=== PATIENT | female | born 1935 | race Caucasian/White ===

== ENCOUNTER 2016-02-24 11:09 | Outpatient (CLI) | payer MEDICARE, MEDICAID ==
[~2016-02-24 11:09] MED LIST: DABI150C PO; DEXL60CA3 PO; LAMO100T2 PO; LEVO137T24 PO; METF500T4 PO; NEBI10TA2 PO; OLME40TA3 PO; PANT40TA2 PO; QUET50TA PO; ROSU40TA PO; SOLI10TA PO; ZOLP5TAB2 PO; [UNRECOGNIZED DRUG - CODE] PO
== END 2016-02-24 23:59 | disposition home or self-care (01) ==
LOC: WOU 11:09
PROVIDERS: ATTEND Surgery
DX: R22.9 Localized swelling, mass and lump, unspecified (principal); W18.1 Fall from or off toilet; I69.354 Hemiplegia and hemiparesis following cerebral infarction affecting left non-dominant side; E11.9 Type 2 diabetes mellitus without complications; Z79.84 Long term (current) use of oral hypoglycemic drugs
CPT/HCPCS: 72190-TC; G0463

== ENCOUNTER 2016-04-27 12:00 | Outpatient (CLI) | payer MEDICARE, MEDICAID ==
[~2016-04-27 12:00] MED LIST changes: +CIPR-262 PO; -[UNRECOGNIZED DRUG - CODE] PO
== END 2016-04-27 23:59 | disposition home or self-care (01) ==
LOC: WOU 12:00
PROVIDERS: ATTEND Surgery
DX: T81.89XA Other complications of procedures, not elsewhere classified, initial encounter (principal); I96 Gangrene, not elsewhere classified; I69.354 Hemiplegia and hemiparesis following cerebral infarction affecting left non-dominant side; E11.9 Type 2 diabetes mellitus without complications; Z91.81 History of falling
CPT/HCPCS: 11043; A6402 ×2; J3490

== ENCOUNTER 2016-05-04 11:57 | Outpatient (CLI) | payer MEDICARE, MEDICAID | END 2016-05-04 23:59 | disposition home health service (06) | LOC: WOU 11:57 | PROVIDERS: ATTEND Surgery | DX: S71.011D Laceration without foreign body, right hip, subsequent encounter (principal); W19.XXXD Unspecified fall, subsequent encounter; I69.354 Hemiplegia and hemiparesis following cerebral infarction affecting left non-dominant side; E11.9 Type 2 diabetes mellitus without complications; S70.01XS Contusion of right hip, sequela; Z79.84 Long term (current) use of oral hypoglycemic drugs | CPT/HCPCS: 97605-TC; A6402 ==

== ENCOUNTER 2016-05-18 12:50 | Outpatient (CLI) | payer MEDICARE, MEDICAID | END 2016-05-18 23:59 | disposition home health service (06) | LOC: WOU 12:50 | PROVIDERS: ATTEND Surgery | DX: S71.011D Laceration without foreign body, right hip, subsequent encounter (principal); W19.XXXD Unspecified fall, subsequent encounter; I69.354 Hemiplegia and hemiparesis following cerebral infarction affecting left non-dominant side; E11.9 Type 2 diabetes mellitus without complications; S70.01XS Contusion of right hip, sequela; Z79.84 Long term (current) use of oral hypoglycemic drugs | CPT/HCPCS: 11043; A6402 ==

== ENCOUNTER 2016-05-25 12:37 | Outpatient (CLI) | payer MEDICARE, MEDICAID | END 2016-05-25 23:59 | disposition home health service (06) | LOC: WOU 12:37 | PROVIDERS: ATTEND Surgery | DX: T81.89XA Other complications of procedures, not elsewhere classified, initial encounter (principal); S70.01XS Contusion of right hip, sequela; W18.1 Fall from or off toilet; I69.354 Hemiplegia and hemiparesis following cerebral infarction affecting left non-dominant side; E11.9 Type 2 diabetes mellitus without complications; Z79.84 Long term (current) use of oral hypoglycemic drugs; Z98.890 Other specified postprocedural states | CPT/HCPCS: 11043; A6402 ==

== ENCOUNTER 2016-06-01 12:47 | Outpatient (CLI) | payer MEDICARE, MEDICAID | END 2016-06-01 23:59 | disposition home health service (06) | LOC: WOU 12:47 | PROVIDERS: ATTEND Surgery | DX: T81.89XA Other complications of procedures, not elsewhere classified, initial encounter (principal); S70.01XS Contusion of right hip, sequela; W18.1 Fall from or off toilet; I69.354 Hemiplegia and hemiparesis following cerebral infarction affecting left non-dominant side; E11.9 Type 2 diabetes mellitus without complications; Z79.84 Long term (current) use of oral hypoglycemic drugs; Z98.890 Other specified postprocedural states; L08.9 Local infection of the skin and subcutaneous tissue, unspecified | CPT/HCPCS: 11043; A6402 ==

== ENCOUNTER 2016-06-08 12:15 | Outpatient (CLI) | payer MEDICARE, MEDICAID | END 2016-06-08 23:59 | disposition home health service (06) | LOC: WOU 12:15 | PROVIDERS: ATTEND Surgery | DX: T81.89XA Other complications of procedures, not elsewhere classified, initial encounter (principal); W18.1 Fall from or off toilet; I69.354 Hemiplegia and hemiparesis following cerebral infarction affecting left non-dominant side; E11.9 Type 2 diabetes mellitus without complications; Z79.84 Long term (current) use of oral hypoglycemic drugs; Z98.890 Other specified postprocedural states; S71.001A Unspecified open wound, right hip, initial encounter | CPT/HCPCS: 11043; A6402 ==

== ENCOUNTER 2016-06-09 09:06 | Outpatient (CLI) | payer MEDICARE, MEDICAID ==
[2016-06-09 09:59] LABS: BASOPHILS # (AUTO) 0.1 /CMM (0.0-0.2); BASOPHILS % (AUTO) 0.8 % (0.0-2.0); EOSINOPHILS # (AUTO) 0.4 /CMM (0.0-0.7); EOSINOPHILS % (AUTO) 4.9 % (0.0-6.0); HEMATOCRIT 35 % (33-45); HEMOGLOBIN 11.3 g/dL (11.5-14.8); LYMPHOCYTES # (AUTO) 2.3 /CMM (0.8-4.8); LYMPHOCYTES % (AUTO) 27.9 % (20.0-44.0); MEAN CORPUSCULAR HEMOGLOBIN 27 PG (26.0-33.0); MEAN CORPUSCULAR HGB CONC 33 g/dl (31.0-36.0); MEAN CORPUSCULAR VOLUME 82 fL (82-100); MONOCYTES # (AUTO) 0.6 /CMM (0.1-1.30); MONOCYTES % (AUTO) 7.5 % (2.0-12.0); NEUTROPHILS # (AUTO) 4.8 /CMM (1.8-8.9); NEUTROPHILS % (AUTO) 58.9 % (43.0-81.0); PLATELET COUNT (AUTO) 330 /CMM (150-450); RDW COEFFICIENT OF VARIATION 16.3 (11.5-15.0); RED BLOOD CELL COUNT(AUTO) 4.25 MIL/uL (4.0-5.2); WHITE BLOOD COUNT (AUTO) 8.1 K/uL (4.3-11.0)
[2016-06-09 10:17] LABS: INR 0.94 (0.87-1.13)
[2016-06-09 11:17] LABS: CALCIUM, SERUM 8.2 mg/dL (8.5-10.1); CREATININE 1.1 mg/dL (0.6-1.3); POTASSIUM 4.6 mmol/L (3.5-5.1)
== END 2016-06-09 23:59 | disposition home or self-care (01) ==
LOC: LAB 09:06
PROVIDERS: ATTEND Podiatrist Foot & Ankle Surgery
DX: Z01.818 Encounter for other preprocedural examination (principal); I51.7 Cardiomegaly; I70.0 Atherosclerosis of aorta
CPT/HCPCS: 36415; 71010-TC; 80048-TC; 85025-TC; 85730-TC

== ENCOUNTER 2016-06-15 12:25 | Outpatient (CLI) | payer MEDICARE, MEDICAID | END 2016-06-15 23:59 | disposition home or self-care (01) | LOC: WOU 12:25 | PROVIDERS: ATTEND Surgery | DX: S71.001A Unspecified open wound, right hip, initial encounter (principal); I69.354 Hemiplegia and hemiparesis following cerebral infarction affecting left non-dominant side; E11.9 Type 2 diabetes mellitus without complications; Z79.84 Long term (current) use of oral hypoglycemic drugs; Z98.890 Other specified postprocedural states; Y92.89 Other specified places as the place of occurrence of the external cause; S70.01XS Contusion of right hip, sequela; W18.39XS Other fall on same level, sequela | CPT/HCPCS: 11043; A6402 ==

== ENCOUNTER 2016-06-22 05:27 | Inpatient (IN) | payer MEDICARE, MEDICAID ==
[~2016-06-22] VITALS: Ht 165.1 cm; Wt 65.8 kg
--- NOTE | 2016-06-22 05:45 | NUR ---
MS RN NOTES RECEIVED PT IN A WHEELCHAIR, TRANSFERRED TO BED SAFELY, AND CAREGIVER AT BEDSIDE. PT IS A/O X 3. VERBALLY RESPONSIVE . NO DISTRESS, NO SOB NOTED. RESPIRATION IS EVEN AND UNLABORED. BODY ASSESSMENT DONE. PT FOR RIGHT HIP DEBRIDEMENT AND WOUND VAC APPLICATION. ALL NEEDS ATTENDED. ATTEMPTED TO INSERT IV ON RIGHT AND LEFT HAND X 3, UNSUCCESSFUL. WILL ENDORSE TO DAY SHIFT FOR JOHNNA.
[2016-06-22] MEDS ORDERED: CEFAZOLIN 2 GM ONE (06:14)
[2016-06-22] MEDS ORDERED: IV NS 0.9% 100 ML IV ONE (06:14)
[2016-06-22] MEDS ORDERED: CEFAZOLIN 2 GM in IV D5W 50 ML IV SCH (06:30)
[2016-06-22 07:04] VITALS: BP 150/78
[2016-06-22] MEDS ORDERED: BUPIVACAINE 0.25% 75 MG/30 ML VIAL ONE (07:17)
[2016-06-22] MEDS ORDERED: LIDOCAINE HCL/PF 1% 30 ML SDV ONE (07:17)
[2016-06-22] MEDS ORDERED: BUPIVACAINE MPF W/EPI 0.25% 30 ML VIAL ONE (07:17)
[2016-06-22] MEDS ORDERED: ROCURONIUM BROMIDE 50 MG/5 ML ONE (07:19)
[2016-06-22] MEDS ORDERED: FENTANYL PF 100MCG/2ML AMPUL ONE (07:19)
[2016-06-22] MEDS ORDERED: MIDAZOLAM HCL 2 MG/2ML VIAL ONE (07:19)
[2016-06-22] MEDS ORDERED: SUCCINYLCHOLINE CHLORIDE 20 MG/ML VIAL ONE (07:19)
--- NOTE | 2016-06-22 07:30 | NUR ---
ATTEMPTED TO INSERT IV ON RIGHT AND LEFT HAND UNSUCCESSFUL , CHARGE NURSE AWARE. BS : 96 AT THIS TIME. PT WITH ORDER FOR ANCEF 2GM, ENDORSED TO OR STAFF. PT WAS PICKED UP FOR RIGHT HIP DEBRIDEMENT .
--- NOTE | 2016-06-22 08:10 | NUR ---
MS/RN OPENING NOTE PT. IS NOT IN ROOM. PT. HAD LEFT FOR SURGERY OF RIGHT HIP WOUND DEBRIDEMENT WITH WOUND VAC PLACEMENT. PT. BED IS NOT IN ROOM.
[2016-06-22 09:00] VITALS: BP 111/57
--- NOTE | 2016-06-22 09:00 | NUR ---
MS/ RN RETURN TO SAME ROOM PT. RETURNED BACK TO SAME ROOM FROM SURGERY, RIGHT HIP WOUND DEBRIDEMENT IN STABLE CONDITION. PT. WAS ORDERED TO BE DISCHARGED HOME AFTER PT. TOLERATES FOOD INTAKE ,AND WILL VOID.
[2016-06-22 09:15] VITALS: BP 116/53
[2016-06-22 09:30] VITALS: BP 118/61
[2016-06-22 09:45] VITALS: BP 122/63
[2016-06-22] MEDS ORDERED: QUET25TA PO (09:59)
[2016-06-22] MEDS ORDERED: FERR325T28 PO (09:59)
[2016-06-22] MEDS ORDERED: EZET10TA PO (09:59)
[2016-06-22] MEDS ORDERED: LEVO150T8 PO (09:59)
[2016-06-22] MEDS ORDERED: DOXE3TAB3 PO (09:59)
[2016-06-22] MEDS ORDERED: FURO20TA4 PO (09:59)
[2016-06-22] MEDS ORDERED: LEVO125T8 PO (09:59)
[2016-06-22 11:00] VITALS: BP 121/63
--- NOTE | 2016-06-22 11:00 | NUR ---
MS/RN TOLERATING FOOD INTAKE PT. TOLERATED DRINKING WATER, AND CRACKERS.
--- NOTE | 2016-06-22 13:03 | NUR ---
MS/NURSES DIRECTOR HOME PT. WAS DISCHARGED HOME. PT. LEFT [facility] IN STABLE CONDITION WITH BY CAR. PT. LEFT HOSPITAL IN A WHEELCHAIR. ALL DISCHARGE INSTRUCTIONS WERE PROVIDED TO THE AND PATIENT REGARDING NEW MEDICATION, AND FOLLOW UP APPOINTMENT WITHIN A WEEK WITH DR. THOMPSON. PT. HAD VOIDED ONCE BEFORE DISCHARGE IN DIAPER. RIGHT IV SITE WAS REMOVED, BLEEDING WAS STOPPED, AND ID BAND WAS REMOVED. PT.'S SAID THAT DR. THOMPSON WILL ORDER HOME HEALTH FOR WOUND CARE POST OPERATION.
== END 2016-06-22 08:30 | disposition home or self-care (01) | DRG 908 ==
LOC: DS 05:27 → MED 05:28 → UNDODISIN 13:00
PROVIDERS: ADMIT Surgery; ATTEND Surgery
PROC: 0KBN0ZZ Excision of Right Hip Muscle, Open Approach (ICD-10-PCS; principal; 2016-06-22 07:30)
DX: T81.89XA Other complications of procedures, not elsewhere classified, initial encounter (principal); L97.819 Non-pressure chronic ulcer of other part of right lower leg with unspecified severity
CPT/HCPCS: 82962-TC; 87081-TC; 88305-TC; A6402; A6403; J0330; J0690; J1100; J2250; J2405; J2704; J3010; J3490; J7030; Z7610

== ENCOUNTER 2016-06-29 12:14 | Outpatient (CLI) | payer MEDICARE, MEDICAID ==
[~2016-06-29 12:14] MED LIST changes: -CIPR-262 PO; -DABI150C PO; -DEXL60CA3 PO; +DOXE3TAB3 PO; +EZET10TA PO; +FERR325T28 PO; +FURO20TA4 PO; +LEVO125T8 PO; -LEVO137T24 PO; +LEVO150T8 PO; -PANT40TA2 PO; +QUET25TA PO; -QUET50TA PO; -ZOLP5TAB2 PO
== END 2016-06-29 23:59 | disposition home health service (06) ==
LOC: WOU 12:14
PROVIDERS: ATTEND Surgery
DX: Z48.817 Encounter for surgical aftercare following surgery on the skin and subcutaneous tissue (principal); I69.354 Hemiplegia and hemiparesis following cerebral infarction affecting left non-dominant side; E11.9 Type 2 diabetes mellitus without complications; Z79.84 Long term (current) use of oral hypoglycemic drugs; Z98.890 Other specified postprocedural states; Y92.89 Other specified places as the place of occurrence of the external cause; S70.01XS Contusion of right hip, sequela; W18.39XS Other fall on same level, sequela; S71.001A Unspecified open wound, right hip, initial encounter
CPT/HCPCS: 11043; 11046; 97606; A6402 ×2; J3490 ×2

== ENCOUNTER 2016-07-06 12:45 | Outpatient (CLI) | payer MEDICARE, MEDICAID | END 2016-07-06 23:59 | disposition home health service (06) | LOC: WOU 12:45 | PROVIDERS: ATTEND Surgery | DX: T81.89XA Other complications of procedures, not elsewhere classified, initial encounter (principal); I69.354 Hemiplegia and hemiparesis following cerebral infarction affecting left non-dominant side; E11.9 Type 2 diabetes mellitus without complications; Z79.84 Long term (current) use of oral hypoglycemic drugs; Z98.890 Other specified postprocedural states; Y92.89 Other specified places as the place of occurrence of the external cause; S70.01XS Contusion of right hip, sequela; W18.39XS Other fall on same level, sequela | CPT/HCPCS: 11043; 97606-TC; A6402; J3490 ==

== ENCOUNTER 2016-07-13 12:45 | Outpatient (CLI) | payer MEDICARE, MEDICAID | END 2016-07-13 23:59 | disposition home health service (06) | LOC: WOU 12:45 | PROVIDERS: ATTEND Surgery | DX: T81.89XA Other complications of procedures, not elsewhere classified, initial encounter (principal); I69.354 Hemiplegia and hemiparesis following cerebral infarction affecting left non-dominant side; E11.9 Type 2 diabetes mellitus without complications; Z79.84 Long term (current) use of oral hypoglycemic drugs; Z98.890 Other specified postprocedural states; Y92.89 Other specified places as the place of occurrence of the external cause; S70.01XS Contusion of right hip, sequela; W18.39XS Other fall on same level, sequela | CPT/HCPCS: 11043; 11046; 97606; A6402; J3490 ==

== ENCOUNTER 2016-07-20 12:30 | Outpatient (CLI) | payer MEDICARE, MEDICAID | END 2016-07-20 23:59 | disposition home health service (06) | LOC: WOU 12:30 | PROVIDERS: ATTEND Surgery | DX: S71.001D Unspecified open wound, right hip, subsequent encounter (principal); S70.01XS Contusion of right hip, sequela; I69.354 Hemiplegia and hemiparesis following cerebral infarction affecting left non-dominant side; E11.9 Type 2 diabetes mellitus without complications; Z79.84 Long term (current) use of oral hypoglycemic drugs; Z98.890 Other specified postprocedural states; Y92.89 Other specified places as the place of occurrence of the external cause; W18.39XS Other fall on same level, sequela | CPT/HCPCS: 11043; 11046; 97606; A6402 ×2; J3490 ==

== ENCOUNTER 2016-07-27 12:15 | Outpatient (CLI) | payer MEDICARE, MEDICAID | END 2016-07-27 23:59 | disposition home health service (06) | LOC: WOU 12:15 | PROVIDERS: ATTEND Surgery | DX: S71.001D Unspecified open wound, right hip, subsequent encounter (principal); I69.354 Hemiplegia and hemiparesis following cerebral infarction affecting left non-dominant side; E11.9 Type 2 diabetes mellitus without complications; Z79.84 Long term (current) use of oral hypoglycemic drugs; Z98.890 Other specified postprocedural states; Y92.89 Other specified places as the place of occurrence of the external cause; W18.39XS Other fall on same level, sequela; S70.01XS Contusion of right hip, sequela | CPT/HCPCS: 11043; 11046; 97606; A6402 ==

== ENCOUNTER 2016-08-03 10:20 | Outpatient (CLI) | payer MEDICARE, MEDICAID | END 2016-08-03 23:59 | disposition home or self-care (01) | LOC: WOU 10:20 | PROVIDERS: ATTEND Surgery | DX: S71.001D Unspecified open wound, right hip, subsequent encounter (principal); I69.354 Hemiplegia and hemiparesis following cerebral infarction affecting left non-dominant side; E11.9 Type 2 diabetes mellitus without complications; Z79.84 Long term (current) use of oral hypoglycemic drugs; Z98.890 Other specified postprocedural states; Y92.89 Other specified places as the place of occurrence of the external cause; W18.39XS Other fall on same level, sequela; S70.01XS Contusion of right hip, sequela | CPT/HCPCS: 11043; A6253; A6402 ==

== ENCOUNTER 2016-08-10 12:24 | Outpatient (CLI) | payer MEDICARE, MEDICAID | END 2016-08-10 23:59 | disposition home health service (06) | LOC: WOU 12:24 | PROVIDERS: ATTEND Surgery | DX: S71.001D Unspecified open wound, right hip, subsequent encounter (principal); I69.354 Hemiplegia and hemiparesis following cerebral infarction affecting left non-dominant side; E11.9 Type 2 diabetes mellitus without complications; Z79.84 Long term (current) use of oral hypoglycemic drugs; Z98.890 Other specified postprocedural states; Y92.89 Other specified places as the place of occurrence of the external cause; W18.39XS Other fall on same level, sequela; S70.01XS Contusion of right hip, sequela | CPT/HCPCS: 11042; 11045; A6253; A6402 ==

== ENCOUNTER 2016-08-17 12:20 | Outpatient (CLI) | payer MEDICARE, MEDICAID | END 2016-08-17 23:59 | disposition home health service (06) | LOC: WOU 12:20 | PROVIDERS: ATTEND Surgery | DX: S71.001D Unspecified open wound, right hip, subsequent encounter (principal); I69.354 Hemiplegia and hemiparesis following cerebral infarction affecting left non-dominant side; E11.9 Type 2 diabetes mellitus without complications; Z79.84 Long term (current) use of oral hypoglycemic drugs; Z98.890 Other specified postprocedural states; Y92.89 Other specified places as the place of occurrence of the external cause; W18.39XS Other fall on same level, sequela; S70.01XS Contusion of right hip, sequela | CPT/HCPCS: 11042; 11045; A6253; A6402 ==

== ENCOUNTER 2016-08-24 12:25 | Outpatient (CLI) | payer MEDICARE, MEDICAID | END 2016-08-24 23:59 | disposition home health service (06) | LOC: WOU 12:25 | PROVIDERS: ATTEND Surgery | DX: S71.001D Unspecified open wound, right hip, subsequent encounter (principal); I69.354 Hemiplegia and hemiparesis following cerebral infarction affecting left non-dominant side; E11.9 Type 2 diabetes mellitus without complications; Z79.84 Long term (current) use of oral hypoglycemic drugs; Z98.890 Other specified postprocedural states; Y92.89 Other specified places as the place of occurrence of the external cause; W18.39XS Other fall on same level, sequela; S70.01XS Contusion of right hip, sequela | CPT/HCPCS: 11042; A6253; A6402 ×2 ==

== ENCOUNTER 2016-09-07 12:30 | Outpatient (CLI) | payer MEDICARE, MEDICAID | END 2016-09-07 23:59 | disposition home or self-care (01) | LOC: WOU 12:30 | PROVIDERS: ATTEND Surgery | DX: S71.001D Unspecified open wound, right hip, subsequent encounter (principal); I69.354 Hemiplegia and hemiparesis following cerebral infarction affecting left non-dominant side; E11.9 Type 2 diabetes mellitus without complications; Z79.84 Long term (current) use of oral hypoglycemic drugs; Z98.890 Other specified postprocedural states; Y92.89 Other specified places as the place of occurrence of the external cause; W18.39XS Other fall on same level, sequela; S70.01XS Contusion of right hip, sequela | CPT/HCPCS: 11042; A6253; A6402 ==

== ENCOUNTER 2016-09-21 12:30 | Outpatient (CLI) | payer MEDICARE, MEDICAID | END 2016-09-21 23:59 | disposition home health service (06) | LOC: WOU 12:30 | PROVIDERS: ATTEND Surgery | DX: S71.001D Unspecified open wound, right hip, subsequent encounter (principal); I69.354 Hemiplegia and hemiparesis following cerebral infarction affecting left non-dominant side; E11.9 Type 2 diabetes mellitus without complications; Z79.84 Long term (current) use of oral hypoglycemic drugs; Z98.890 Other specified postprocedural states; Y92.89 Other specified places as the place of occurrence of the external cause; W18.39XS Other fall on same level, sequela; S70.01XS Contusion of right hip, sequela | CPT/HCPCS: 11042; A6253; A6402 ==

== ENCOUNTER 2016-10-09 12:30 | Outpatient (CLI) | payer MEDICARE, MEDICAID | END 2016-10-09 23:59 | disposition home health service (06) | LOC: WOU 12:30 | PROVIDERS: ATTEND Surgery | DX: S71.001A Unspecified open wound, right hip, initial encounter (principal); I69.354 Hemiplegia and hemiparesis following cerebral infarction affecting left non-dominant side; E11.9 Type 2 diabetes mellitus without complications; Z79.84 Long term (current) use of oral hypoglycemic drugs; Z98.890 Other specified postprocedural states; Y92.89 Other specified places as the place of occurrence of the external cause; W18.39XS Other fall on same level, sequela; S70.01XS Contusion of right hip, sequela | CPT/HCPCS: 11042; A6253; A6402 ==

== ENCOUNTER 2016-10-19 10:37 | Outpatient (CLI) | payer MEDICARE, MEDICAID | END 2016-10-19 23:59 | disposition home health service (06) | LOC: WOU 10:37 | PROVIDERS: ATTEND Surgery | DX: S71.001A Unspecified open wound, right hip, initial encounter (principal); I69.354 Hemiplegia and hemiparesis following cerebral infarction affecting left non-dominant side; E11.9 Type 2 diabetes mellitus without complications; Z79.84 Long term (current) use of oral hypoglycemic drugs; Z98.890 Other specified postprocedural states; Y92.89 Other specified places as the place of occurrence of the external cause; W18.39XS Other fall on same level, sequela; S70.01XS Contusion of right hip, sequela; L02.511 Cutaneous abscess of right hand; S91.111A Laceration without foreign body of right great toe without damage to nail, initial encounter; W45.8XXA Other foreign body or object entering through skin, initial encounter; Y93.E8 Activity, other personal hygiene | CPT/HCPCS: 11042; A6253; A6402; J3490 ==

== ENCOUNTER 2016-10-26 12:20 | Outpatient (CLI) | payer MEDICARE, MEDICAID | END 2016-10-26 23:59 | disposition home health service (06) | LOC: WOU 12:20 | PROVIDERS: ATTEND Surgery | DX: S71.001A Unspecified open wound, right hip, initial encounter (principal); I69.354 Hemiplegia and hemiparesis following cerebral infarction affecting left non-dominant side; E11.9 Type 2 diabetes mellitus without complications; Z79.84 Long term (current) use of oral hypoglycemic drugs; Z98.890 Other specified postprocedural states; Y92.89 Other specified places as the place of occurrence of the external cause; W18.39XS Other fall on same level, sequela; S70.01XS Contusion of right hip, sequela; L02.511 Cutaneous abscess of right hand; S91.111D Laceration without foreign body of right great toe without damage to nail, subsequent encounter; W45.8XXD Other foreign body or object entering through skin, subsequent encounter | CPT/HCPCS: 11042; A6253; A6402 ×2 ==

== ENCOUNTER 2016-11-09 12:45 | Outpatient (CLI) | payer MEDICARE, MEDICAID | END 2016-11-09 23:59 | disposition home health service (06) | LOC: WOU 12:45 | PROVIDERS: ATTEND Surgery | DX: S71.001A Unspecified open wound, right hip, initial encounter (principal); I69.354 Hemiplegia and hemiparesis following cerebral infarction affecting left non-dominant side; E11.9 Type 2 diabetes mellitus without complications; Z79.84 Long term (current) use of oral hypoglycemic drugs; Z98.890 Other specified postprocedural states; Y92.89 Other specified places as the place of occurrence of the external cause; W18.39XS Other fall on same level, sequela; S91.111D Laceration without foreign body of right great toe without damage to nail, subsequent encounter; W45.8XXD Other foreign body or object entering through skin, subsequent encounter; L30.4 Erythema intertrigo; L03.011 Cellulitis of right finger | CPT/HCPCS: 11042; A6253; A6402 ==

== ENCOUNTER 2016-11-16 12:10 | Outpatient (CLI) | payer MEDICARE, MEDICAID | END 2016-11-16 23:59 | disposition home health service (06) | LOC: WOU 12:10 | PROVIDERS: ATTEND Surgery | DX: S71.001A Unspecified open wound, right hip, initial encounter (principal); I69.354 Hemiplegia and hemiparesis following cerebral infarction affecting left non-dominant side; E11.9 Type 2 diabetes mellitus without complications; Z79.84 Long term (current) use of oral hypoglycemic drugs; Z98.890 Other specified postprocedural states; Y92.89 Other specified places as the place of occurrence of the external cause; W18.39XS Other fall on same level, sequela; L30.4 Erythema intertrigo | CPT/HCPCS: 11042; A6253; A6402 ==

== ENCOUNTER 2016-12-07 11:10 | Outpatient (CLI) | payer MEDICARE, MEDICAID | END 2016-12-07 23:59 | disposition home health service (06) | LOC: WOU 11:10 | PROVIDERS: ATTEND Surgery | DX: S71.001A Unspecified open wound, right hip, initial encounter (principal); I69.354 Hemiplegia and hemiparesis following cerebral infarction affecting left non-dominant side; E11.9 Type 2 diabetes mellitus without complications; Z79.84 Long term (current) use of oral hypoglycemic drugs; Z98.890 Other specified postprocedural states; Y92.89 Other specified places as the place of occurrence of the external cause; W18.39XS Other fall on same level, sequela; L30.4 Erythema intertrigo | CPT/HCPCS: 11042; A6253; A6402 ==

== ENCOUNTER 2016-12-21 12:25 | Outpatient (CLI) | payer MEDICARE, MEDICAID | END 2016-12-21 23:59 | disposition home health service (06) | LOC: WOU 12:25 | PROVIDERS: ATTEND Surgery | DX: T81.89XA Other complications of procedures, not elsewhere classified, initial encounter (principal); S71.011D Laceration without foreign body, right hip, subsequent encounter; W19.XXXD Unspecified fall, subsequent encounter; S70.01XS Contusion of right hip, sequela; W19.XXXS Unspecified fall, sequela; I69.354 Hemiplegia and hemiparesis following cerebral infarction affecting left non-dominant side; E11.9 Type 2 diabetes mellitus without complications; L30.4 Erythema intertrigo | CPT/HCPCS: 11042; A6253; A6402; A6452 ==

== ENCOUNTER 2017-01-11 12:30 | Outpatient (CLI) | payer MEDICARE, MEDICAID | END 2017-01-11 23:59 | disposition home or self-care (01) | LOC: WOU 12:30 | PROVIDERS: ATTEND Surgery | DX: T81.89XA Other complications of procedures, not elsewhere classified, initial encounter (principal); S71.011D Laceration without foreign body, right hip, subsequent encounter; W19.XXXD Unspecified fall, subsequent encounter; S70.01XS Contusion of right hip, sequela; W19.XXXS Unspecified fall, sequela; I69.354 Hemiplegia and hemiparesis following cerebral infarction affecting left non-dominant side; E11.9 Type 2 diabetes mellitus without complications; L30.4 Erythema intertrigo; B07.9 Viral wart, unspecified; Z79.899 Other long term (current) drug therapy | CPT/HCPCS: 11042; A6253; A6402 ==

== ENCOUNTER 2017-02-01 12:26 | Outpatient (CLI) | payer MEDICARE, MEDICAID ==
[~2017-02-01 12:26] MED LIST changes: -EZET10TA PO; +EZET10TA14 PO; +OLME40TA12 PO; -OLME40TA3 PO; -SOLI10TA PO; +SOLI10TA2 PO
== END 2017-02-01 23:59 | disposition home health service (06) ==
LOC: WOU 12:26
PROVIDERS: ATTEND Surgery
DX: T81.89XA Other complications of procedures, not elsewhere classified, initial encounter (principal); S71.011D Laceration without foreign body, right hip, subsequent encounter; W19.XXXD Unspecified fall, subsequent encounter; S70.01XS Contusion of right hip, sequela; W19.XXXS Unspecified fall, sequela; I69.354 Hemiplegia and hemiparesis following cerebral infarction affecting left non-dominant side; E11.9 Type 2 diabetes mellitus without complications; L30.4 Erythema intertrigo; B07.9 Viral wart, unspecified; Z79.899 Other long term (current) drug therapy
CPT/HCPCS: 11042; A6402

== ENCOUNTER 2017-02-15 12:10 | Outpatient (CLI) | payer MEDICARE, MEDICAID | END 2017-02-15 23:59 | disposition home health service (06) | LOC: WOU 12:10 | PROVIDERS: ATTEND Surgery | DX: T81.89XA Other complications of procedures, not elsewhere classified, initial encounter (principal); S71.011D Laceration without foreign body, right hip, subsequent encounter; W19.XXXD Unspecified fall, subsequent encounter; I69.354 Hemiplegia and hemiparesis following cerebral infarction affecting left non-dominant side; E11.9 Type 2 diabetes mellitus without complications; L30.4 Erythema intertrigo; B07.9 Viral wart, unspecified; Z79.899 Other long term (current) drug therapy | CPT/HCPCS: 11042; A6402 ==

== ENCOUNTER → 2017-03-08 | Outpatient (CLI) | payer MEDICARE, MEDICAID | END | disposition home health service (06) | LOC: WOU 12:30 | PROVIDERS: ATTEND Surgery | DX: S71.011D Laceration without foreign body, right hip, subsequent encounter (principal); W18.11XD Fall from or off toilet without subsequent striking against object, subsequent encounter; I69.354 Hemiplegia and hemiparesis following cerebral infarction affecting left non-dominant side; L30.4 Erythema intertrigo | CPT/HCPCS: G0463 ==

== ENCOUNTER 2017-03-29 12:33 | Outpatient (CLI) | payer MEDICARE, MEDICAID | END 2017-03-29 23:59 | disposition home health service (06) | LOC: WOU 12:33 | PROVIDERS: ATTEND Surgery | DX: L30.4 Erythema intertrigo (principal); E11.9 Type 2 diabetes mellitus without complications; B07.9 Viral wart, unspecified; I69.354 Hemiplegia and hemiparesis following cerebral infarction affecting left non-dominant side | CPT/HCPCS: A6402; G0463 ==

== ENCOUNTER 2018-07-18 09:45 | Outpatient (CLI) | payer MEDICARE, MEDICAID ==
[~2018-07-18 09:45] MED LIST changes: +METF-440 PO; -METF500T4 PO
== END 2018-07-18 23:59 | disposition home or self-care (01) ==
LOC: WOU 09:45
PROVIDERS: ATTEND Podiatrist Foot & Ankle Surgery
DX: I69.354 Hemiplegia and hemiparesis following cerebral infarction affecting left non-dominant side (principal); I69.398 Other sequelae of cerebral infarction; M21.372 Foot drop, left foot; R26.2 Difficulty in walking, not elsewhere classified; E11.9 Type 2 diabetes mellitus without complications; M81.0 Age-related osteoporosis without current pathological fracture
CPT/HCPCS: 73610; G0463; A6402

== ENCOUNTER 2020-12-14 22:12 | Emergency (ER) | payer MEDICARE, OTHER ==
[~2020-12-14] VITALS: Ht 157.5 cm; Wt 54.4 kg
[~2020-12-14 22:12] MED LIST changes: -EZET10TA14 PO; +EZET10TA16 PO
[2020-12-14 22:21] VITALS: BP 143/84
--- NOTE | 2020-12-14 23:20 | NUR ---
Patient discharged to home in stable condition. Written and verbal after care instructions given. Patient verbalizes understanding of instruction. Pt assisted to car on wheelchair
== END 2020-12-14 23:23 | disposition home or self-care (01) ==
LOC: ER 22:25
DX: Z00.8 Encounter for other general examination (principal); I10 Essential (primary) hypertension; E78.5 Hyperlipidemia, unspecified; E11.40 Type 2 diabetes mellitus with diabetic neuropathy, unspecified; F03.90 Unspecified dementia, unspecified severity, without behavioral disturbance, psychotic disturbance, mood disturbance, and anxiety; Z90.49 Acquired absence of other specified parts of digestive tract; Z79.899 Other long term (current) drug therapy